=== PATIENT | female | born 1995 | race Caucasian/White ===

== ENCOUNTER 2016-03-05 14:56 | Inpatient (IN) | payer BC ==
[~2016-03-05] VITALS: Ht 175.3 cm; Wt 119.8 kg
[2016-03-05 14:59] VITALS: BP 143/87; PULSE 97; RESP 15; TEMP 99.7; O2SAT 95
--- NOTE | 2016-03-05 15:19 | PD ---
HPI Chief Complaint: Cold / Flu Symptoms Time Seen by Provider: 15:19 Travel History International Travel<30 days: No Contact w/Intl Traveler<30days: No Traveled to known affect area: No History of Present Illness HPI 20-year-old female came to the emergency room with history of cough for past 3 days with fever and chills. Patient says every time she is coughing greenish sputum is coming out. Temperature was 99.1 in the triage. Patient is a smoker. She says last month she had used one of her friend's inhalers but does not have nebulizer or inhalers of her own. [facility] Past Medical History Narrative Medical List of her past medical history is reviewed from the nursing note. ?: Not LMP: month-irreg. Past Surgical History Tonsillectomy: Yes Social History Alcohol Use: Yes (occassional) Tobacco Use: Yes Substance Use: No Allergies-Medications (Allergen,Severity, Reaction): Coded Allergies: No Known Allergies (Unverified , 03/05/16) Comments No known drug allergies. Reported Meds & Prescriptions Reported Meds & Active Scripts Active Reported Flexeril (Cyclobenzaprine HCl) 10 Mg Tab 10 Mg PO TID PRN Narrative Medication List of her home medications reviewed from the nursing note. Review of Systems Except as stated in HPI: all other systems reviewed are Neg Physical Exam Narrative GENERAL: Awake, alert, obese, mild distress SKIN: Warm and dry. HEAD: Atraumatic. Normocephalic. EYES: Pupils equal and round. No scleral icterus. No injection or drainage. ENT: No nasal bleeding or discharge. Mucous membranes pink and moist. NECK: Trachea midline. No JVD. CARDIOVASCULAR: Regular rate and rhythm. No murmur appreciated. RESPIRATORY: No accessory muscle use. Decreased air entry bilaterally with end expiratory wheeze GASTROINTESTINAL: Abdomen soft, non-tender, nondistended. Hepatic and splenic margins not palpable. MUSCULOSKELETAL: No obvious deformities. No clubbing. No cyanosis. No edema. NEUROLOGICAL: Awake and alert. No obvious cranial nerve deficits. Motor grossly within normal limits. Normal speech. PSYCHIATRIC: Appropriate mood and affect; insight and judgment normal. Data Data Last Documented VS Vital Signs Date Time Temp Pulse Resp B/P Pulse Ox O2 Delivery O2 Flow Rate FiO2 03/05/16 17:29 109 25 104/72 100 Aerosol Mask 03/05/16 14:59 99.7 Orders Chest, Pa & Lat (03/05/16 15:22) Ecg Monitoring (03/05/16 15:22) Iv Access Insert/Monitor (03/05/16 15:22) Oximetry (03/05/16 15:22) Oxygen Administration (03/05/16 15:22) Prednisone (Deltasone) (03/05/16 15:30) Albuterol-Ipratropium Neb (Duoneb Neb) (03/05/16 15:30) Sodium Chloride 0.9% Flush (Ns Flush) (03/05/16 15:30) Influenzae A/B Antigen (03/05/16 15:22) Electrocardiogram (03/05/16 15:44) Complete Blood Count With Diff (03/05/16 15:44) Comprehensive Metabolic Panel (03/05/16 15:44) Lactic Acid Sepsis Protocol (03/05/16 15:44) Urinalysis - C+S If Indicated (03/05/16 15:44) Blood Culture (03/05/16 15:44) Blood Glucose (03/05/16 15:44) Sodium Chlor 0.9% 1000 Ml Inj (Ns 1000 M (03/05/16 15:45) Ceftriaxone Inj (Rocephin Inj) (03/05/16 15:45) Azithromycin Inj (Zithromax Inj) (03/05/16 15:45) Albuterol Neb (Albuterol Neb) (03/05/16 17:15) Troponin I (03/05/16 17:12) B-Type Natriuretic Peptide (03/05/16 17:12) Urine Culture (03/05/16 16:15) Piperacil-Tazo 4.5 Gm Premix (Zosyn 4.5 (03/05/16 17:45) Sodium Chlor 0.9% 1000 Ml Inj (Ns 1000 M (03/05/16 17:45) Potassium Chloride Eff (K-Lyte Cl Eff) (03/05/16 18:00) Admit To Inpatient (03/05/16 ) Code Status (03/05/16 17:59) Vital Signs (Adult) Q4H (03/05/16 17:59) Activity Oob Ad Tete (03/05/16 17:59) ^ Customer Solutions Representative / Telemetry .CONTINUOUS (03/05/16 17:59) Diet Regular Basic (03/05/16 Dinner) Sodium Chlor 0.9% 1000 Ml Inj (Ns 1000 M (03/05/16 18:00) Sodium Chloride 0.9% Flush (Ns Flush) (03/05/16 18:00) Sodium Chloride 0.9% Flush (Ns Flush) (03/05/16 21:00) Acetaminophen (Tylenol) (03/05/16 18:00) Ondansetron Inj (Zofran Inj) (03/05/16 18:00) Bisacodyl Supp (Dulcolax Supp) (03/05/16 18:00) Magnesium Hydroxide Liq (Milk Of Magnesi (03/05/16 18:00) Basic Metabolic Panel (Bmp) (03/06/16 06:00) Complete Blood Count With Diff (03/06/16 06:00) Resp Oxygen Alfa C Titrat 1-4 L (03/05/16 ) Enoxaparin Inj (Lovenox Inj) (03/05/16 18:00) Naloxone Inj (Narcan Inj) (03/05/16 18:00) Inpatient Certification (03/05/16 ) Admit Order (Ed Use Only) (03/05/16 18:03) Labs Laboratory Tests Test 03/05/16 16:15 White Blood Count 10.4 TH/MM3 Red Blood Count 5.43 MIL/MM3 Hemoglobin 15.6 GM/DL Hematocrit 46.6 % Mean Corpuscular Volume 85.8 FL Mean Corpuscular Hemoglobin 28.8 PG Mean Corpuscular Hemoglobin 33.5 % Concent Red Cell Distribution Width 14.7 % Platelet Count 243 TH/MM3 Mean Platelet Volume 8.4 FL Neutrophils (%) (Auto) 66.5 % Lymphocytes (%) (Auto) 19.1 % Monocytes (%) (Auto) 10.3 % Eosinophils (%) (Auto) 3.4 % Basophils (%) (Auto) 0.7 % Neutrophils # (Auto) 6.9 TH/MM3 Lymphocytes # (Auto) 2.0 TH/MM3 Monocytes # (Auto) 1.1 TH/MM3 Eosinophils # (Auto) 0.4 TH/MM3 Basophils # (Auto) 0.1 TH/MM3 CBC Comment DIFF FINAL Differential Comment Urine Color YELLOW Urine Turbidity HAZY Urine pH 6.0 Urine Specific [place] 1.026 Urine Protein TRACE mg/dL Urine Glucose (UA) NEG mg/dL Urine Ketones NEG mg/dL Urine Occult Blood NEG Urine Nitrite NEG Urine Bilirubin NEG Urine Urobilinogen 4.0 MG/DL Urine Leukocyte Esterase LARGE Urine RBC 10 /hpf Urine WBC 31 /hpf Urine WBC Clumps FEW Urine Squamous Epithelial 18 /hpf Cells Urine Mucus MOD /lpf Microscopic Urinalysis Comment CULTURE INDICATED Sodium Level 136 MEQ/L Potassium Level 3.2 MEQ/L Chloride Level 101 MEQ/L Carbon Dioxide Level 24.3 MEQ/L Anion Gap 11 MEQ/L Blood Urea Nitrogen 9 MG/DL Creatinine 0.91 MG/DL Estimat Glomerular Filtration 78 ML/MIN Rate Random Glucose 94 MG/DL Lactic Acid Level 3.0 mmol/L Calcium Level 8.7 MG/DL Total Bilirubin 0.7 MG/DL Aspartate Amino Transf 17 U/L (AST/SGOT) Alanine Aminotransferase 35 U/L (ALT/SGPT) Alkaline Phosphatase 114 U/L Total Protein 8.7 GM/DL Albumin 4.3 GM/DL MDM Medical Decision Making Medical Screen Exam Complete: Yes Emergency Medical Condition: Yes Medical Record Reviewed: Yes Interpretation(s) Twelve-lead EKG was reviewed by me. Normal sinus rhythm, left axis deviation, frequent PVCs, tachycardia, nonspecific ST-T wave changes. Heart rate of 109 bpm. Differential Diagnosis Reactive airway disease, bronchitis, pneumonia, influenza Narrative Course 4:58 PM chest x-ray was suggestive of left lingular infiltrate. Influenza was negative. I've ordered IV antibiotic and blood test. Awaiting for the results. 4:54 PM blood test results are back. Patient has elevated lactic acid level and low potassium. I've ordered potassium replacement. UA suggestive of UTI. I have added Zosyn given the lactic acidosis. Patient will need to be admitted at this point. I've ordered another liter of IV fluid bolus. I had reassessed her earlier and she was still wheezing and I had ordered 2 more albuterol treatments for her. EKG shows frequent PVCs. I've ordered troponin and BNP as well. Critical Care Narrative Aggregate critical care time was 30 minutes. Time to perform other separately billable procedures was not included in the critical care time. My time did not include minutes spent treating any other patients simultaneously or on activities that did not directly contribute to the patient's treatment. The services I provided to this patient were to treat and/or prevent clinically significant deterioration that could result in: Respiratory distress, multiple nebulizers, lactic acidosis, pneumonia, frequent PVCs I provided critical care services requiring my management, as noted below: Chart data review, documentation time, medication orders and management, vital sign assessments/reviewing monitor data, ordering and reviewing lab tests, ordering and interpreting/reviewing x-rays and diagnostic studies, care of the patient and discussion of the patient with the admitting physicians. Procedures EKG Prior to Arrival: No Diagnosis Primary Impression: Shortness of breath Additional Impressions: Pneumonia Qualified Code: J18.1 - Pneumonia of left lower lobe due to infectious organism Wheezing Lactic acidosis UTI (urinary tract infection) Qualified Code: N39.0 - Urinary tract infection without hematuria, site unspecified Frequent PVCs Admitting Information Admitting Physician Requests: Admit Scripts Albuterol 18 GM Inh (Ventolin Hfa 18 GM Inh)90 Mcg/Act Aer2 Puff INH Q4-6H PRN ( SHORTNESS OF BREATH) #1 INHALER Ref 0 Prov:Fortino Azar DO 03/06/16 Levofloxacin (Levaquin)750 Mg [id number] Mg PO DAILY #7 TAB Ref 0 Prov:Fortino Azar DO 03/06/16 Prednisone 20 Mg Tab25 Mg PO BID 5 Days Prov:Fortino Azar DO 03/06/16 Viviane Plasencia MD Mar 05, 2016 15:19
[2016-03-05] MEDS ORDERED: SODIUM CHLORIDE 0.9% FLUSH 5 ML FLUSH IVF PRN (15:30)
[2016-03-05] MEDS ORDERED: predniSONE 20 MG TAB PO ONE (15:30)
[2016-03-05] MEDS: RESP: ALBUTEROL 2.5 MG/IPRATROPIUM 0.5 MG NEB (SCH) INH (15:39)
--- NOTE | 2016-03-05 15:40 | RADRPT ---
EXAM DATE/TIME: 03/05/2016 15:37 [place] COMPARISON: No previous studies available for comparison. INDICATIONS : Wheezing and coughing x 3 days MEDICAL HISTORY : None. SURGICAL HISTORY : None. ENCOUNTER: Initial ACUITY: 1 day PAIN SCORE: 0/10 LOCATION: Bilateral chest FINDINGS: Focal consolidations seen left lung base, primarily lingula. Right lung is clear. No pleural effusion or pneumothorax seen on either side. CONCLUSION: Left base pneumonia. Matt Moore MD on March 05, 2016 at 15:38 Board Certified Radiologist. This report was verified electronically.
[2016-03-05] MEDS ORDERED: cefTRIAXone INJ 1,000 MG in SODIUM CHLORIDE 0.9% INJ 100 ML IV ONE (15:45)
[2016-03-05] MEDS ORDERED: SODIUM CHLOR 0.9% 1000 ML INJ 1,000 ML IV ONE ×2 (15:45→17:45)
[2016-03-05] MEDS ORDERED: AZITHROMYCIN INJ 500 MG in SODIUM CHLOR 0.9% 250 ML INJ 250 ML IV ONE (15:45)
[2016-03-05 17:09] LABS: AUTOMATED NEUTROPHIL # 6.9 TH/MM3 (1.8-7.7); BASOPHIL # 0.1 TH/MM3 (0-0.2); BASOPHIL % 0.7 % (0.0-2.0); EOSINOPHIL # 0.4 TH/MM3 (0-0.4); EOSINOPHIL % 3.4 % (0.0-4.0); HEMATOCRIT 46.6 % (35.0-46.0); HEMO FLAGS DIFF FINAL; LYMPH % 19.1 % (9.0-44.0); MEAN CELL VOLUME 85.8 FL (80.0-100.0); MEAN CORPUSCULAR HEMOGLOBIN 28.8 PG (27.0-34.0); MEAN CORPUSCULAR HGB CONC 33.5 % (32.0-36.0); MONO % 10.3 % (0.0-8.0); NEUT % 66.5 % (16.0-70.0); PLATELET COUNT 243 TH/MM3 (150-450); RED BLOOD COUNT 5.43 MIL/MM3 (4.00-5.30); RED CELL DISTRIBUTION WIDTH 14.7 % (11.6-17.2); WHITE BLOOD COUNT 10.4 TH/MM3 (4.0-11.0)
[2016-03-05 17:29] VITALS: BP 104/72; PULSE 109; RESP 25; O2SAT 100
[2016-03-05 17:30] LABS: ANION GAP 11 MEQ/L (5-15); AST (GOT) 17 U/L (15-37); BICARBONATE 24.3 MEQ/L (21.0-32.0); BLOOD UREA NITROGEN 9 MG/DL (7-18); CHLORIDE 101 MEQ/L (98-107); GLOMERULAR FILTRATION RATE 78 ML/MIN (>89); POTASSIUM 3.2 MEQ/L (3.5-5.1); SODIUM (NA) 136 MEQ/L (136-145)
[2016-03-05 17:33] LABS: ALKALINE PHOSPHATASE 114 U/L (45-117); ALT (GPT) 35 U/L (10-53); TOTAL BILIRUBIN ADULT 0.7 MG/DL (0.2-1.0)
[2016-03-05 17:36] LABS: BLOOD, URINE NEG (NEG); COMMENT (UR) CULTURE INDICATED; CULTURE IF INDICATED CULTURE INDICATED; GLUCOSE,URINE NEG (NEG); KETONE, URINE NEG (NEG); MUCUS URINE MOD /lpf (OCC); NITRITE,URINE NEG (NEG); SQUAMOUS EPITHELIAL CELL URINE 18 /hpf (0-5); URINE COLOR YELLOW (YELLW/STRAW)
[2016-03-05] MEDS ORDERED: PIPERACIL-TAZO 4.5 GM PREMIX 100 ML IV ONE (17:45)
[2016-03-05] MEDS: RESP: ALBUTEROL 2.5 MG/3 ML NEB (SCH) INH ×2 (17:55→17:56)
[2016-03-05] MEDS ORDERED: NALOXONE HCL 0.4 MG/ML AMP IV PRN (18:00)
[2016-03-05] MEDS ORDERED: MAGNESIUM HYDROXIDE SUSP 30 ML CUP PO PRN (18:00)
[2016-03-05] MEDS ORDERED: ENOXAPARIN SODIUM 40 MG/0.4 ML SYRINGE SQ SCH (18:00)
[2016-03-05] MEDS ORDERED: SODIUM CHLORIDE 0.9% FLUSH 5 ML FLUSH FLUSH PRN (18:00)
[2016-03-05] MEDS ORDERED: POTASSIUM CHLORIDE 25 MEQ EFFERVESCENT TAB PO ONE (18:00)
[2016-03-05] MEDS ORDERED: BISACODYL 10 MG SUPP PR PRN (18:00)
[2016-03-05] MEDS ORDERED: ONDANSETRON HCL 4 MG/2 ML VIAL IVP PRN (18:00)
[2016-03-05 18:55] LABS: LACTIC ACID GHOST NOT REPORTABLE
[2016-03-05] MEDS: SODIUM CHLOR 0.9% 1000 ML INJ 1,000 ML IV SCH ×2 (18:55→23:00)
--- NOTE | 2016-03-05 19:05 | HHI.HP ---
[facility] Primary [facility]ician No Primary Care Physician Admission Diagnosis sepsis, pneumonia, UTI, frequent PVCs Diagnoses: Chief Complaint: Sinus congestion, cough, shortness of breath, fever. Travel History International Travel<30 Days: No Contact w/Intl Traveler <30 Da: No Traveled to Known Affected Are: No Sepsis Criteria SIRS Criteria (2 or more): Heart rate over 90, RR > 20 or PaCO2 < 32 Sepsis Criteria (SIRS+source): Infect source susp/known Severe Sepsis (+one): Lactate >2 History of Present Illness Ms. Mcmahon is a pleasant 20 year old female with no significant medical history who presents to the ED due to sinus congestion, cough with greenish sputum production, low grade fever for the past 3 days prior to this admission on 2016. She denies any dysuria, hematuria or change in urinary frequency. Denies any chest pain or changes in her bowel habits. Review of Systems ROS Limitations: Other (Negative except as noted in the HPI. ) Past Family Social History Past Medical History No medical history. Past Surgical History Tonsillectomy, adenoidectomy. Reported Medications Takes Flexeril PRN. Allergies: Coded Allergies: No Known Allergies (Unverified , 03/05/16) Family History Dad - [place] in his 40s. Social History Smokes tobacco, drinks alcohol occasionally. Denies any illicit drug use. Physical Exam Vital Signs Vital Signs Date Time Temp Pulse Resp B/P Pulse Ox O2 Delivery O2 Flow Rate FiO2 03/05/16 17:29 109 25 104/72 100 Aerosol Mask 03/05/16 16:57 98 Room Air 03/05/16 14:59 99.7 97 15 143/87 95 Physical Exam GENERAL: This is a well-nourished, well-developed patient, in no apparent distress. SKIN: No rashes, ecchymoses or lesions. Warm and dry. HEAD: Atraumatic. Normocephalic. No temporal or scalp tenderness. EYES: Pupils equal round and reactive. No injection or drainage. ENT: Nose without bleeding, purulent drainage or septal hematoma. Airway patent. NECK: Trachea midline. No lymphadenopathy. Supple, nontender, no meningeal signs. CARDIOVASCULAR: Tachycardic with regular rhythm without murmurs, gallops, or rubs. No JVD. RESPIRATORY: Diffuse coarse breath sounds. No appreciable wheezing or crackles. Moderate air entry. GASTROINTESTINAL: Abdomen soft, non-tender, nondistended. No guarding. MUSCULOSKELETAL: Extremities without clubbing, cyanosis, or edema. NEUROLOGICAL: Awake and alert. Cranial nerves II through XII intact. No focal neurological deficits. Normal speech. Laboratory Laboratory Tests Test 03/05/16 16:15 White Blood Count 10.4 Red Blood Count 5.43 Hemoglobin 15.6 Hematocrit 46.6 Mean Corpuscular Volume 85.8 Mean Corpuscular Hemoglobin 28.8 Mean Corpuscular Hemoglobin 33.5 Concent Red Cell Distribution Width 14.7 Platelet Count 243 Mean Platelet Volume 8.4 Neutrophils (%) (Auto) 66.5 Lymphocytes (%) (Auto) 19.1 Monocytes (%) (Auto) 10.3 Eosinophils (%) (Auto) 3.4 Basophils (%) (Auto) 0.7 Neutrophils # (Auto) 6.9 Lymphocytes # (Auto) 2.0 Monocytes # (Auto) 1.1 Eosinophils # (Auto) 0.4 Basophils # (Auto) 0.1 CBC Comment DIFF FINAL Differential Comment Urine Color YELLOW Urine Turbidity HAZY Urine pH 6.0 Urine Specific [place] 1.026 Urine Protein TRACE Urine Glucose (UA) NEG Urine Ketones NEG Urine Occult Blood NEG Urine Nitrite NEG Urine Bilirubin NEG Urine Urobilinogen 4.0 Urine Leukocyte Esterase LARGE Urine RBC 10 Urine WBC 31 Urine WBC Clumps FEW Urine Squamous Epithelial 18 Cells Urine Mucus MOD Microscopic Urinalysis Comment CULTURE INDICATED Sodium Level 136 Potassium Level 3.2 Chloride Level 101 Carbon Dioxide Level 24.3 Anion Gap 11 Blood Urea Nitrogen 9 Creatinine 0.91 Estimat Glomerular Filtration 78 Rate Random Glucose 94 Lactic Acid Level 3.0 Calcium Level 8.7 Total Bilirubin 0.7 Aspartate Amino Transf 17 (AST/SGOT) Alanine Aminotransferase 35 (ALT/SGPT) Alkaline Phosphatase 114 Total Protein 8.7 Albumin 4.3 Date/Time Procedure Status Source Growth 03/05/16 16:15 Urine Culture Received Urine Clean Catch Pending 03/05/16 16:15 Aerobic Blood Culture Received Blood Peripheral Pending 03/05/16 16:15 Anaerobic Blood Culture Received Blood Peripheral Pending 03/05/16 15:40 Influenza Types A,B Antigen (VELIA) - Final Complete Nasal Aspirate NEGATIVE FOR FLU A AND B ANTIGEN.... Result Diagram: 03/05/16 1615 03/05/16 1615 Imaging Last Impressions Chest X-Ray 03/05/16 1522 Signed Impressions: Service Date/Time: Saturday, March 05, 2016 15:37 - CONCLUSION: Left base pneumonia. Matt Moore MD Assessment and Plan Problem List: (1) Severe sepsis ICD Code: A41.9 Status: Acute (2) Pneumonia ICD Code: J18.9 Status: Acute (3) Hypokalemia ICD Code: E87.6 Status: Acute (4) Obesity (BMI 30-39.9) ICD Code: E66.9 Status: Acute Assessment and Plan Ms. Mcmahon is a pleasant 20 year old female with no significant medical history who presents to the ED on 03/05/2016 due to cough, sinus congestion, shortness of breath, fever for 3 days. She reported greenish sputum production. Denies any dysuria, hematuria or increase urination. Patient received Ceftriaxone 1g, Azithromycin 500mg and Zosyn in the ED. Patient also received 60mg of Prednisone in the ED. - Severe sepsis (Tachycardia, Tachypnea, pneumonia, lactic acid 3.0). - Left lower lobe pneumonia - Tachycardia is likely due to pneumonia, fever. - Keep NS @200cc/hour. - Will continue Ceftriaxone 2g Q24 hours IV and PO Azithromycin 500mg Qday - Continue Prednisone 25mg BID for 5 days. - DuoNeb PRN - Mild hypokalemia - Patient received 25 meq of K+ in the ED. Will monitor. Full code. [place]. Physician Certification 2 Midnight Certification Type: Admission for Inpatient Services Order for Inpatient Services The services are ordered in accordance with Medicare regulations or non- Medicare payer requirements, as applicable. In the case of services not specified as inpatient-only, they are appropriately provided as inpatient services in accordance with the 2-midnight benchmark. Estimated LOS (days): 2 days is the estimated time the patient will need to remain in the hospital, assuming treatment plan goals are met and no additional complications. Post-Hospital Plan: Home Problem Qualifiers (1) Pneumonia: Qualified Code: J18.1 - Pneumonia of left lower lobe due to infectious organism Fortino Azar DO Mar 05, 2016 19:04
[2016-03-05 19:30] VITALS: O2SAT 97
[2016-03-05 21:11] VITALS: BP 136/78; PULSE 107; RESP 16; O2SAT 96
[2016-03-05] MEDS: SODIUM CHLORIDE 0.9% FLUSH 5 ML FLUSH FLUSH SCH (21:16)
[2016-03-05 21:45] VITALS: BP 146/75; PULSE 100; RESP 18; TEMP 98.6; O2SAT 94
[2016-03-05] MEDS ORDERED: CYCL1TAB29 PO (21:46)
[2016-03-05] MEDS: ACETAMINOPHEN 325 MG TAB PO PRN (22:30)
[2016-03-05 22:42] VITALS: PULSE 84
[2016-03-06] VITALS: BP 134/60; PULSE 83; RESP 18; TEMP 98.5; O2SAT 96
[2016-03-06] MEDS ORDERED: RESP: ALBUTEROL 2.5 MG/IPRATROPIUM 0.5 MG NEB (PRN) NEB
[2016-03-06] MEDS ORDERED: CYCLOBENZAPRINE HCL 10 MG TAB PO PRN
[2016-03-06 04:00] VITALS: BP 133/77; PULSE 78; RESP 17; TEMP 98; O2SAT 96
[2016-03-06] MEDS: SODIUM CHLOR 0.9% 1000 ML INJ 1,000 ML IV SCH ×2 (04:00→08:36)
[2016-03-06] MEDS: ACETAMINOPHEN 325 MG TAB PO PRN (06:02)
[2016-03-06] MEDS ORDERED: cefTRIAXone INJ 2,000 MG in SODIUM CHLORIDE 0.9% INJ 100 ML IV SCH (08:00)
[2016-03-06 08:01] VITALS: PULSE 77
[2016-03-06 08:28] VITALS: BP 139/61; PULSE 95; RESP 19; TEMP 97.9; O2SAT 98
[2016-03-06] MEDS ORDERED: AZITHROMYCIN 250 MG TAB PO SCH (09:00)
[2016-03-06] MEDS: SODIUM CHLORIDE 0.9% FLUSH 5 ML FLUSH FLUSH SCH (09:00)
[2016-03-06] MEDS ORDERED: predniSONE 5 MG TAB PO SCH (09:00)
[2016-03-06] MEDS ORDERED: predniSONE 20 MG TAB PO SCH ×3 (09:00)
[2016-03-06 09:07] LABS: AUTOMATED NEUTROPHIL # 6.2 TH/MM3 (1.8-7.7); BASOPHIL # 0.1 TH/MM3 (0-0.2); EOSINOPHIL # 0.1 TH/MM3 (0-0.4); EOSINOPHIL % 0.7 % (0.0-4.0); HEMATOCRIT 41.1 % (35.0-46.0); HEMO FLAGS DIFF FINAL; LYMPH % 20.1 % (9.0-44.0); LYMPHOCYTE # 1.8 TH/MM3 (1.0-4.8); MEAN CELL VOLUME 85.5 FL (80.0-100.0); MEAN CORPUSCULAR HEMOGLOBIN 28.6 PG (27.0-34.0); MEAN CORPUSCULAR HGB CONC 33.5 % (32.0-36.0); MONO % 8.6 % (0.0-8.0); NEUT % 69.6 % (16.0-70.0); PLATELET COUNT 235 TH/MM3 (150-450); RED BLOOD COUNT 4.81 MIL/MM3 (4.00-5.30); RED CELL DISTRIBUTION WIDTH 14.7 % (11.6-17.2)
[2016-03-06 09:45] LABS: MAGNESIUM 1.9 MG/DL (1.5-2.5); POTASSIUM 3.4 MEQ/L (3.5-5.1)
[2016-03-06 12:06] VITALS: BP 135/74; PULSE 90; RESP 19; TEMP 97.6; O2SAT 96
[2016-03-06] MEDS ORDERED: LEVA750T PO (12:20)
[2016-03-06] MEDS ORDERED: PRED20 PO (12:20)
--- NOTE | 2016-03-06 12:27 | HHI.PR ---
Subjective Remarks Follow up for pneumonia. Patient reports feeling much better today. Denies any chest pain, SOB, fever, chills. Friend at bedside. Objective Vitals Vital Signs Date Time Temp Pulse Resp B/P Pulse Ox O2 Delivery O2 Flow Rate FiO2 03/06/16 12:06 97.6 90 19 135/74 96 03/06/16 08:28 97.9 95 19 139/61 98 03/06/16 08:01 77 03/06/16 04:00 98.0 78 17 133/77 96 03/06/16 00:00 98.5 83 18 134/60 96 03/05/16 22:42 84 03/05/16 21:45 98.6 100 18 146/75 94 03/05/16 21:11 107 16 136/78 96 Room Air 03/05/16 19:30 97 03/05/16 17:29 109 25 104/72 100 Aerosol Mask 03/05/16 16:57 98 Room Air 03/05/16 14:59 99.7 97 15 143/87 95 I/O 03/05/16 03/05/16 03/05/16 03/06/16 03/06/16 03/06/16 07:00 15:00 23:00 07:00 15:00 23:00 Intake Total 606 ml 1278 ml Balance 606 ml 1278 ml Intake IV Total 606 ml 1278 ml Result Diagram: 03/06/16 0834 03/06/16 0834 Imaging Last Impressions Chest X-Ray 03/05/16 1522 Signed Impressions: Service Date/Time: Saturday, March 05, 2016 15:37 - CONCLUSION: Left base pneumonia. Matt Moore MD Objective Remarks GENERAL: AOx3, NAD. SKIN: Warm and dry. HEAD: Normocephalic. EYES: No scleral icterus. No injection or drainage. NECK: Supple, trachea midline. No JVD or lymphadenopathy. CARDIOVASCULAR: Regular rate and rhythm without murmurs, gallops, or rubs. RESPIRATORY: Breath sounds equal bilaterally. No accessory muscle use. Coarse breath sound heard yesterday much improved today. GASTROINTESTINAL: Abdomen soft, non-tender, nondistended. MUSCULOSKELETAL: No cyanosis, or edema. BACK: Nontender without obvious deformity. No CVA tenderness. Procedures None. A/P Problem List: (1) Severe sepsis ICD Code: A41.9 Status: Acute (2) Pneumonia ICD Code: J18.9 Status: Acute (3) Hypokalemia ICD Code: E87.6 Status: Acute (4) Obesity (BMI 30-39.9) ICD Code: E66.9 Status: Acute Assessment and Plan Ms. Mcmahon is a pleasant 20 year old female with no significant medical history who presents to the ED on 03/05/2016 due to cough, sinus congestion, shortness of breath, fever for 3 days. She reported greenish sputum production. Denies any dysuria, hematuria or increase urination. Patient received Ceftriaxone 1g, Azithromycin 500mg and Zosyn in the ED. Patient also received 60mg of Prednisone in the ED. - Severe sepsis (Tachycardia, Tachypnea, pneumonia, lactic acid 3.0). - Left lower lobe pneumonia - Tachycardia improved. - Keep NS @200cc/hour. - Will continue Ceftriaxone 2g Q24 hours IV and PO Azithromycin 500mg Qday while in the hospital. - Continue Prednisone 25mg BID for 5 days. - DuoNeb PRN - Levaquin on Discharge. - Mild hypokalemia - Patient received 25 meq of K+ in the ED. K+ 3.4 today. Full code. Lovenox. Discharge patient to home Condition on discharge: Improved. Patient's clinical condition improved very quickly. We will discharge patient home with close follow up with her PCP. Regular Diet as tolerated Ad Tete activity Rx written: - Levaquin 750mg Qday X 7 days - Prednisone 25mg BID X 5 days. Follow-up with primary care physician within two weeks. CXR in 4 weeks. Problem Qualifiers (1) Pneumonia: Qualified Code: J18.1 - Pneumonia of left lower lobe due to infectious organism Fortino Azar DO Mar 06, 2016 12:27 pm
[2016-03-06] MEDS ORDERED: VENTAER INH (12:53)
--- NOTE | 2016-03-06 17:49 | EKG ---
Date Performed: 03/05/2016 Time Performed: 16:26:47 PTAGE: 20 years EKG: SINUS TACHYCARDIA WITH FREQUENT VENTRICULAR PREMATURE COMPLEXES MINIMAL VOLTAGE CRITERIA FO R LVH, CONSIDER NORMAL VARIANT ABNORMAL RHYTHM ECG NO PREVIOUS TRACING DOCTOR: Stephanie Zuluaga Interpretating Date/Time 03/06/2016 17:45:53
== END 2016-03-06 13:08 | disposition home or self-care (01) | DRG 871 ==
LOC: NEPA 14:56 → NEDA 18:04 → N04A 21:39
PROVIDERS: ADMIT Hospitalist; ATTEND Hospitalist
DX: A41.9 Sepsis, unspecified organism (principal); J18.9 Pneumonia, unspecified organism; E87.2 Acidosis; N39.0 Urinary tract infection, site not specified; R65.20 Severe sepsis without septic shock; F17.200 Nicotine dependence, unspecified, uncomplicated; E66.9 Obesity, unspecified; Z68.39 Body mass index [BMI] 39.0-39.9, adult; E87.6 Hypokalemia
CPT/HCPCS: 71020; 80048; 80053; 81001; 83605; 83735; 83880; 84484; 85025; 87040; 87086; 87804; 93005; 94640; 94664; 96374; 96375; J0456; J0696; J1650; J2543; J7030; J7050; J7512; J7613